=== PATIENT | female | born 2000 | race Caucasian/White ===

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

== ENCOUNTER 2021-06-28 00:40 | Emergency (ER) | payer BC ==
[2021-06-28 01:19] VITALS: BP 116/77; PULSE 71; RESP 20; TEMP 98.3
[2021-06-28 01:50] LABS: Appearance,Urine Cloudy (Clear); Bacteria,Urine Moderate /hpf; Bilirubin,Urine Negative (Negative); Blood,Urine Negative (Negative); Color,Urine Yellow; Glucose,Urine (UA) Negative (Negative); Ketones,Urine Negative (Negative); Leukocyte Esterase,Urine Large (Negative); Mucus,Urine Few /hpf; Nitrite,Urine Positive (Negative); Protein,Urine Trace (Negative); RBC,Urine 2 /hpf (0-5); Specific Gravity,Urine 1.015 (1.001-1.035); Squamous Epithelial Cell,Urine 3 /hpf (0-4); Urobilinogen,Urine <2.0 mg/dL (<2.0); WBC,Urine 36 /hpf (0-5)
[2021-06-28] MEDS ORDERED: CEFDINIR 300 MG CAP PO STA (02:01)
[2021-06-28] MEDS ORDERED: ONDANSETRON ODT 4 MG TAB PO STA (02:01)
--- NOTE | 2021-06-28 02:27 | ED ---
Nausea/Vomiting/Diarrhea HPI - General Chief complaint: Nausea/Vomiting/Diarrhea Stated complaint: vomiting Time Seen by Provider: 06/28/21 02:02 Source: patient, RN notes reviewed Mode of arrival: ambulatory Limitations: no limitations - History of Present Illness Initial comments: This is a pleasant 21-year-old female presents to emergency department complaining of intermittent sore throat for the past few days. Patient states she is also felt fatigued and somewhat lightheaded. Patient denied any other pain. She denies any chest pain or abdominal pain. No back pain. Patient denies chance of . She denies any vaginal discharge. No dysuria. Patient states she did feel nausea earlier tonight and actually vomited one time. No hematemesis or coffee-ground emesis. No change in bowel movements. Patient has no significant past medical history. Denies alcohol or drug abuse. Patient does not smoke but does vape. No headache, no fever or chills, no changes in vision or hearing, no ear pain, sinus pain, difficulty with speech, no neck pain, no chest pain or shortness of breath, no abdominal pain, no changes in urination or bowel movements, no numbness or tingling, no extremity pain, no skin rashes or lesions. - Related Data Previous Rx's Medication Instructions Recorded Cetirizine HCl [Children's Zyrtec 10 mg PO DAILY #60 tab 06/28/21 Chewable] Sulfamethox-Tmp 800-160Mg [Bactrim 1 tab PO Q12HR #14 tab 06/28/21 DS 800-160 mg] Allergies Allergy/AdvReac Type Severity Reaction Status Date / Time No Known Allergies Allergy Verified 06/28/21 01:19 Review of Systems ROS Statement: Those systems with pertinent positive or pertinent negative responses have been documented in the HPI. ROS Other: All systems not noted in ROS Statement are negative. Past Medical History Past Medical History: No Reported History History of Any Multi-Drug Resistant Organisms: None Reported Past Surgical History: No Surgical Hx Reported Past Psychological History: No Psychological Hx Reported Smoking Status: Vaper Past Alcohol Use History: None Reported Past Drug Use History: None Reported General Exam - General Exam Comments Initial Comments: Healthy-appearing 21-year-old female in no acute distress. Patient does not appear to be ill or toxic. Appears to be adequately hydrated. Limitations: no limitations General appearance: alert, in no apparent distress Head exam: Present: atraumatic, normocephalic, normal inspection Eye exam: Present: normal appearance, PERRL, EOMI. Absent: scleral icterus, conjunctival injection, periorbital swelling ENT exam: Present: normal exam, mucous membranes moist, TM's normal bilaterally, normal external ear exam, other (Patient has clear postnasal drainage with cobblestoning. No evidence of peritonsillar abscess or inflammation. No evidence of intraoral cellulitis or deep space tissue infection. Airway is patent). Absent: normal oropharynx (Patient has mild edematous turbinates with pale appearance. No purulent nasal discharge or sinus tenderness), mucous membranes dry Neck exam: Present: normal inspection, full ROM. Absent: tenderness, meningismus, lymphadenopathy Respiratory exam: Present: normal lung sounds bilaterally. Absent: respiratory distress, wheezes, rales, rhonchi, stridor, accessory muscle use Cardiovascular Exam: Present: regular rate, normal rhythm, normal heart sounds. Absent: systolic murmur, diastolic murmur, rubs, gallop, clicks GI/Abdominal exam: Present: soft, normal bowel sounds. Absent: distended, tenderness, guarding, rebound, rigid Extremities exam: Present: normal inspection, full ROM, normal capillary refill. Absent: tenderness, pedal edema, joint swelling, calf tenderness Back exam: Present: normal inspection. Absent: CVA tenderness (R), CVA tenderness (L) Neurological exam: Present: alert, oriented X3, CN II-XII intact Psychiatric exam: Present: normal affect, normal mood Skin exam: Present: warm, dry, intact, normal color. Absent: rash Course Vital Signs 06/28/21 01:15 Temperature 98.3 F Pulse Rate 71 Respiratory 20 Rate Blood Pressure 116/77 O2 Sat by Pulse 100 Oximetry Medical Decision Making - Medical Decision Making Patient essentially denying any current symptomology other than feeling somewhat fatigued. Patient's urinalysis does show significant amount of white blood cells, positive nitrite and bacteria. Patient is denying any vaginal discharge. Patient is deferring the pelvic examination. We'll treat the patient for urinary tract infection. Patient's sore throat likely related to ALLERGIC rhinitis as she has clear postnasal discharge and cobblestoning. We'll start the patient on Zyrtec. Follow-up with your regular physician as directed. Return to the ER immediately if any symptoms worsen, new symptoms arise, or any other problems develop. Patient given a primary care physician for follow-up. - Lab Data Lab Results 06/28/21 06/28/21 Range/Units 01:28 01:28 Urine Color Yellow Urine Appearance Cloudy H (Clear) Urine pH 7.0 (5.0-8.0) Ur Specific [employer] 1.015 (1.001-1.035) Urine Protein Trace H (Negative) Urine Glucose (UA) Negative (Negative) Urine Ketones Negative (Negative) Urine Blood Negative (Negative) Urine Nitrite Positive H (Negative) Urine Bilirubin Negative (Negative) Urine Urobilinogen <2.0 (<2.0) mg/dL Ur Leukocyte Esterase Large H (Negative) Urine RBC 2 (0-5) /hpf Urine WBC 36 H (0-5) /hpf Ur Squamous Epith Cells 3 (0-4) /hpf Urine Bacteria Moderate H (None) /hpf Urine Mucus Few H (None) /hpf Urine HCG, Qual Not Detected (Not Detectd) Disposition Clinical Impression: Acute UTI, Allergic rhinitis Disposition: HOME SELF-CARE Condition: Stable Instructions (If sedation given, give patient instructions): Urinary Tract Infection in Women (ED), Allergic Rhinitis (ED) Additional Instructions: Take antibiotics as directed. Call tomorrow morning and set up a follow-up appointment with your regular doctor. Follow-up with your regular physician as directed. Return to the ER immediately if any symptoms worsen, new symptoms arise, or any other problems develop. Adhere to a clear liquid diet for the next 12-24 hours. Drink plenty of fluids such as Gatorade, Sprite, water. Prescriptions: Sulfamethox-Tmp 800-160Mg [Bactrim DS 800-160 mg] 1 tab PO Q12HR #14 tab Cetirizine HCl [Children's Zyrtec Chewable] 10 mg PO DAILY #60 tab Is patient prescribed a controlled substance at d/c from ED?: No Referrals: Vanessa Romero MD [REFERRING] - 07/03/21 (Return to the ER if you have any issues.) Time of Disposition: 02:23
== END 2021-06-28 02:35 | disposition home or self-care (01) ==
LOC: EC 00:40
DX: N39.0 Urinary tract infection, site not specified (principal); J30.9 Allergic rhinitis, unspecified; F17.290 Nicotine dependence, other tobacco product, uncomplicated
CPT/HCPCS: 81001; 81025; 87086; 99284

== ENCOUNTER 2021-07-21 09:39 | Emergency (ER) | payer BC ==
[2021-07-21 09:44] VITALS: BP 117/72; RESP 18
--- NOTE | 2021-07-21 11:56 | XR ---
EXAMINATION TYPE: XR chest 2V DATE OF EXAM: 07/21/2021 COMPARISON: NONE HISTORY: Shortness of breath and fever TECHNIQUE: Frontal and lateral views of the chest are obtained. FINDINGS: There is no focal air space opacity, pleural effusion, or pneumothorax seen. The cardiac silhouette size is within normal limits. The osseous structures are intact. IMPRESSION: No acute cardiopulmonary process.
--- NOTE | 2021-07-21 12:02 | ED ---
URI HPI - General Chief Complaint: Upper Respiratory Infection Stated Complaint: Fever/ENT/Bodyaches Time Seen by Provider: 07/21/21 11:05 Source: patient Mode of arrival: ambulatory Limitations: no limitations - History of Present Illness Initial Comments: Patient is a 21-year-old female presents to the emergency department with chief complaint of congestion, body aches, and fever. Patient states her symptoms started yesterday. Upon questioning patient reports mild shortness of breath, dry cough, and sore throat. Patient denies history of asthma or other lung illness. Patient has been taking Motrin for fever. Patient states she is COVID-19 and flu vaccinated. She denies recent sick contacts. Patient has no other concerns at this time including headache, chest pain, abdominal pain, nausea, vomiting, and leg pain or swelling. - Related Data Previous Rx's Medication Instructions Recorded Cetirizine HCl [Children's Zyrtec 10 mg PO DAILY #60 tab 06/28/21 Chewable] Sulfamethox-Tmp 800-160Mg [Bactrim 1 tab PO Q12HR #14 tab 06/28/21 DS 800-160 mg] Fluticasone Nasal [place] [Flonase 2 spray EA NOSTRIL DAILY #16 gm 07/21/21 Nasal [place]] Allergies Allergy/AdvReac Type Severity Reaction Status Date / Time No Known Allergies Allergy Verified 07/21/21 09:43 Review of Systems ROS Statement: Those systems with pertinent positive or pertinent negative responses have been documented in the HPI. ROS Other: All systems not noted in ROS Statement are negative. Past Medical History Past Medical History: No Reported History History of Any Multi-Drug Resistant Organisms: None Reported Past Surgical History: No Surgical Hx Reported Past Psychological History: No Psychological Hx Reported Smoking Status: Vaper Past Alcohol Use History: None Reported Past Drug Use History: None Reported General Exam Limitations: no limitations General appearance: alert, in no apparent distress Head exam: Present: atraumatic, normocephalic, normal inspection Eye exam: Present: normal appearance, PERRL, EOMI. Absent: scleral icterus, conjunctival injection, periorbital swelling ENT exam: Present: normal oropharynx, mucous membranes moist Neck exam: Present: normal inspection. Absent: meningismus Respiratory exam: Present: normal lung sounds bilaterally. Absent: respiratory distress, wheezes, rales, rhonchi, stridor, decreased breath sounds, prolonged expiratory Cardiovascular Exam: Present: regular rate, normal rhythm, normal heart sounds. Absent: systolic murmur, diastolic murmur, rubs, gallop, clicks GI/Abdominal exam: Present: soft, normal bowel sounds. Absent: distended, tenderness, guarding, rebound, rigid Neurological exam: Present: alert, oriented X3, CN II-XII intact Psychiatric exam: Present: normal affect, normal mood Skin exam: Present: warm, dry, intact, normal color. Absent: rash Course Vital Signs 07/21/21 07/21/21 07/21/21 09:43 12:29 12:53 Temperature 101.1 F H 101 F H 101 F H Pulse Rate 105 H 89 89 Respiratory 18 18 18 Rate Blood Pressure 117/72 117/72 O2 Sat by Pulse 96 97 97 Oximetry Medical Decision Making - Medical Decision Making This is a 21-year-old female who presents with upper respiratory symptoms. Thorough history and examination were performed. Patient is febrile at 101.1F. Lungs are clear to auscultation bilaterally. The pharynx is normal-appearing with no erythema, exudate, or swelling. COVID-19 and influenza A/B are not detected. Chest x-ray is negative for acute process. Patient was offered antipyretics for fever and bodyaches however patient declines at this time. I do not have clinical suspicion for pulmonary embolism. Patient is likely experiencing illness of viral etiology. I prescribed her fluticasone nasal spray encouraged her to use [id number] Mucinex for congestion. She is instructed to follow-up with primary care provider and to return to the emergency department if she experienced new, concerning, or worsening symptoms. Patient verbalizes understanding and is agreeable to this plan. Dr. Dumont is my attending. - Lab Data Lab Results 07/21/21 07/21/21 Range/Units 09:54 11:22 Coronavirus (PCR) Not Detected (Not Detectd) Influenza Type A RNA Not Detected (Not Detectd) Influenza Type B (PCR) Not Detected (Not Detectd) Disposition Clinical Impression: Acute upper respiratory infection Disposition: HOME SELF-CARE Condition: Good Instructions (If sedation given, give patient instructions): Upper Respiratory Infection (ED) Additional Instructions: Please use nasal spray as directed. Please take Motrin or Tylenol as needed for fever and body aches. Follow up with primary care provider in one to 2 days. Return to the emergency department if you experience new, concerning, or worsening symptoms. Prescriptions: Fluticasone Nasal [place] [Flonase Nasal [place]] 2 spray EA NOSTRIL DAILY #16 gm Is patient prescribed a controlled substance at d/c from ED?: No Referrals: None,Stated [Primary Care Provider] - 1-2 days Time of Disposition: 12:02
[2021-07-21 12:30] VITALS: PULSE 89; TEMP 101
== END 2021-07-21 12:53 | disposition home or self-care (01) ==
LOC: EC 09:39
DX: J06.9 Acute upper respiratory infection, unspecified (principal); Z20.822 Contact with and (suspected) exposure to COVID-19; F17.290 Nicotine dependence, other tobacco product, uncomplicated
CPT/HCPCS: 71046; 87502; 87635; 99285

== ENCOUNTER 2024-04-27 14:42 | Emergency (ER) | payer BC ==
[2024-04-27] MEDS: ACETAMINOPHEN TAB 325 MG TAB PO STA (14:54)
[2024-04-27] MEDS: IBUPROFEN 600 MG TAB PO STA (14:54)
--- NOTE | 2024-04-27 15:05 | ED ---
General Adult HPI - General Chief complaint: Upper Respiratory Infection Stated complaint: Fever,Sore throat Time Seen by Provider: 04/27/24 15:00 Source: patient, RN notes reviewed Mode of arrival: ambulatory Limitations: no limitations - History of Present Illness Initial comments: This is a 24-year-old female no stomach medical history presenting to the emergency department for complaint of bodyaches, fever, sore throat and cough over the past few days. Patient is concerned that she has had a elevated fever over the past few days. She denies nausea, vomiting, abdominal pain, urinary or bowel habit changes. - Related Data Previous Rx's Medication Instructions Recorded Cetirizine HCl [Children's Zyrtec 10 mg PO DAILY #60 tab 06/28/21 Chewable] Sulfamethox-Tmp 800-160Mg [Bactrim 1 tab PO Q12HR #14 tab 06/28/21 DS 800-160 mg] Fluticasone Nasal [place] [Flonase 2 spray EA NOSTRIL DAILY #16 gm 07/21/21 Nasal [place]] Allergies Allergy/AdvReac Type Severity Reaction Status Date / Time No Known Allergies Allergy Verified 04/27/24 14:46 Review of Systems ROS Statement: Those systems with pertinent positive or pertinent negative responses have been documented in the HPI. ROS Other: All systems not noted in ROS Statement are negative. Past Medical History Past Medical History: No Reported History History of Any Multi-Drug Resistant Organisms: None Reported Past Surgical History: No Surgical Hx Reported Past Psychological History: No Psychological Hx Reported Smoking Status: Vaper Past Alcohol Use History: None Reported Past Drug Use History: None Reported General Exam Limitations: no limitations ENT exam: Present: normal exam, mucous membranes moist Respiratory exam: Present: normal lung sounds bilaterally. Absent: respiratory distress, wheezes, rales, rhonchi, stridor Cardiovascular Exam: Present: normal rhythm, tachycardia, normal heart sounds. Absent: systolic murmur, diastolic murmur, rubs, gallop, clicks GI/Abdominal exam: Present: soft, normal bowel sounds. Absent: distended, tenderness, guarding, rebound, rigid Extremities exam: Present: normal inspection, full ROM, normal capillary refill. Absent: tenderness, pedal edema, joint swelling, calf tenderness Skin exam: Present: warm, dry, intact, normal color. Absent: rash Course Vital Signs 04/27/24 04/27/24 14:43 16:03 Temperature 102.5 F H 99.0 F Pulse Rate 143 H 79 Respiratory 22 19 Rate Blood Pressure 127/81 124/71 O2 Sat by Pulse 98 97 Oximetry Medical Decision Making - Medical Decision Making Was pt. sent in by a medical professional or institution (OLIVER Castillo, [employer], urgent care, hospital, or fpc...) When possible be specific @ -No Did you speak to anyone other than the patient for history (EMS, parent, family, police, friend...)? What history was obtained from this source @ -No Did you review nursing and triage notes (agree or disagree)? Why? @ -I reviewed and agree with nursing and triage notes Were old charts reviewed (outside hosp., previous admission, EMS record, old EKG, old radiological studies, urgent care reports/EKG's, fpc records)? Report findings @ -No old charts were reviewed Differential Diagnosis (chest pain, altered mental status, abdominal pain women, abdominal pain men, vaginal bleeding, weakness, fever, dyspnea, syncope, headache, dizziness, GI bleed, back pain, seizure, CVA, palpatations, mental health, musculoskeletal)? @ -COVID 19, RSV, influenza, pneumonia, acute bronchitis, URI, this list is not all inclusive EKG interpreted by me (3pts min.). @ -None X-rays interpreted by me (1pt min.). @ -chest X-ray no acute cardiopulmonary process CT interpreted by me (1pt min.). @ -None done U/S interpreted by me (1pt. min.). @ -None done What testing was considered but not performed or refused? (CT, X-rays, U/S, labs)? Why? @ -None What meds were considered but not given or refused? Why? @ -None Did you discuss the management of the patient with other professionals (professionals i.e. OLIVER Castillo, [employer], lab, RT, psych nurse, social contact worker, keg raiser, teacher, air antisubmarine officer, showcase maker)? Give summary @ -No Was smoking cessation discussed for >3mins.? @ -No Was critical care preformed (if so, how long)? @ -No Were there social determinants of health that impacted care today? How? (Homelessness, low income, unemployed, alcoholism, drug addiction, transportation, low edu. Level, literacy, decrease access to med. care, retirement, rehab)? @ -No Was there de-escalation of care discussed even if they declined (Discuss DNR or withdrawal of care, Hospice)? DNR status @ -No What co-morbidities impacted this encounter? (DM, HTN, Smoking, COPD, CAD, Cancer, CVA, ARF, Chemo, Hep., AIDS, mental health diagnosis, sleep apnea, morbid obesity)? @ -None Was patient admitted / discharged? Hospital course, mention meds given and route, prescriptions, significant lab abnormalities, going to OR and other pertinent info. @ -Discharge. 24-year-old female presenting with bodyaches, sore throat, fever. Patient be febrile on arrival with a temperature of 102.5 and tachycardic with a heart rate of 143. She is provided with Tylenol and ibuprofen pending evaluation. Patient's chest x-ray is unremarkable. She has tested positive for influenza A. Patient's fever has responded well to medications. Recommend she continue supportive treatment at home and follow-up with primary care provider. Case discussed with Dr. Pratt Undiagnosed new problem with uncertain prognosis? @ -No Drug Therapy requiring intensive monitoring for toxicity (Heparin, Nitro, Insulin, Cardizem)? @ -No Were any procedures done? @ -No Diagnosis/symptom? @ -Influenza A Acute, or Chronic, or Acute on Chronic? @ -Acute Uncomplicated (without systemic symptoms) or Complicated (systemic symptoms)? @ -Uncomplicated Side effects of treatment? @ -No Exacerbation, Progression, or Severe Exacerbation? @ -No Poses a threat to life or bodily function? How? (Chest pain, [place], [place], pneumonia, PE, COPD, DKA, ARF, appy, cholecystitis, CVA, Diverticulitis, Homicidal, Suicidal, threat to staff... and all critical care pts) @ -No - Lab Data Lab Results 04/27/24 04/27/24 Range/Units 14:48 14:48 Influenza Type A (PCR) Detected A (Not Detectd) Influenza Type B (PCR) Not Detected (Not Detectd) RSV (PCR) Not Detected (Not Detectd) SARS-CoV-2 (PCR) Not Detected (Not Detectd) Group A Strep (PCR) NOT DETECTED (Not Detectd) Disposition Clinical Impression: Influenza A Disposition: HOME SELF-CARE Condition: Good Instructions (If sedation given, give patient instructions): Influenza (ED) Additional Instructions: Please return to the Emergency Department if symptoms worsen or any other concerns. Is patient prescribed a controlled substance at d/c from ED?: No Referrals: None,Stated [Primary Care Provider] - 1-2 days Time of Disposition: 15:37
--- NOTE | 2024-04-27 15:13 | XR ---
EXAMINATION TYPE: XR chest 2V DATE OF EXAM: 04/27/2024 3:08 PM COMPARISON: Chest radiographs from 07/21/2021 TECHNIQUE: XR chest 2V Frontal and lateral views of the chest. CLINICAL INDICATION:Female, 24 years old with history of cough; FINDINGS: Lungs/Pleura: There is no evidence of pleural effusion, focal consolidation, or pneumothorax. Pulmonary vascularity: Unremarkable. Heart/mediastinum: Cardiomediastinal silhouette is unremarkable. Musculoskeletal: No acute osseous pathology. IMPRESSION: No acute cardiopulmonary disease/process. [facility], , 04/27/2024 3:11 PM
[2024-04-27 15:36] LABS: Influenza A Detected (Not Detectd); Influenza B Not Detected (Not Detectd); RSV Not Detected (Not Detectd)
[2024-04-27 16:05] VITALS: BP 124/71; PULSE 79; RESP 19; TEMP 99
== END 2024-04-27 16:05 | disposition home or self-care (01) ==
LOC: EC 14:42
DX: J10.1 Influenza due to other identified influenza virus with other respiratory manifestations (principal); F17.290 Nicotine dependence, other tobacco product, uncomplicated
CPT/HCPCS: 71046; 87636; 87651; 99283